=== PATIENT | male | born 1985 | race Caucasian/White ===

== ENCOUNTER 2018-02-11 09:59 | Inpatient (IN) | payer OTHER ==
[2018-02-11] VITALS (12 sets, daily range): BP systolic 118–143; BP diastolic 62–82
[~2018-02-11] VITALS: Ht 172.7 cm; Wt 84.8 kg
[~2018-02-11 09:59] MED LIST: Dexamethasone 4mg/ml vial ONE; Glycopyrrolate 0.2mg/ml 1ml Vial ONE; Ketorolac 30mg Inj ONE; LR 1000ml ONE; Midazolam 2mg/2ml Inj ONE; Morphine Sulfate 10mg/ml Inj ONE; NORCO 10-325 T1 EACH ORAL; NS Irrig 1000ml ONE; Neostigmine 1mg/ml 10ml Inj ONE; Propofol 200mg/20ml IV ONE; SOMA350 MG PO; Sterile Water For Irrig 2000ml IRRIG ONE; Sterile Water Irrig 1000ml IRRIG ONE; Zemuron 50mg/5ml Inj IV ONE; ceFAZolin sod 2 GM in D5W 110 ML IVPB ONE; fentaNYL 100 mcg/2 mL IV ONE
--- NOTE | 2018-02-11 10:30 | Pre-Procedure Note/Attestation ---
Pre-Procedure Note/Attestation Complete Prior to Procedure Planned Procedure: not applicable Procedure Narrative: Cervical 56 Artificial disc replacement Indications for Procedure Pre-Operative Diagnosis: c56 herniation Attestation I attest that I discussed the nature of the procedure; its benefits; risks and complications; and alternatives (and the risks and benefits of such alternatives ), prior to the procedure, with the patient (or the patient's legal mechanical service representative). I attest that, if there was a reasonable possibility of needing a blood transfusion, the patient (or the patient's legal mechanical service representative) was given the [facility] standardized written summary, pursuant to the [place] Blood Safety Act ([place] Health and Safety Code # 1645, as amended). I attest that I re-evaluated the patient just prior to the surgery and that there has been no change in the patient's H&P, except as documented below: Bill Dias MD Feb 11, 2018 10:30
--- NOTE | 2018-02-11 10:32 | Brief Operative Note ---
Immediate Post Operative Note Operative Note Chief Complaint: neck pain and radiculopathy Pre-op Diagnosis: c56 herniation Procedure: Cervical 56 Artificial disc replacement Post-op Diagnosis: same as pre-op Findings: consistent w/pre-op dx studies Surgeon: Arun [employer]: Sunny Anesthesiologist: JONI Anesthesia: general - Prodisc C sz 5 Specimen: none Complications: none Condition: stable Estimated Blood Loss: minimal Drains: none Implant(s) used?: Yes Bill Dias MD Feb 11, 2018 10:32
[2018-02-11] MEDS ORDERED: Thrombin 5000 units TOPIC ONE (11:24)
[2018-02-11] MEDS ORDERED: Bupivacaine 0.5% Inj 30 ml vial INJ ONE (11:24)
[2018-02-11] MEDS ORDERED: Bacitracin 50000 Units Vial ONE (11:25)
[2018-02-11] MEDS ORDERED: Surgicel 4in x 8in TOPIC ONE (11:25)
[2018-02-11] MEDS ORDERED: Vancomycin 1gm inj IVPB ONE ×2 (11:25→13:47)
[2018-02-11] MEDS ORDERED: Thrombin 5000 units spray kit TOPIC ONE (13:28)
--- NOTE | 2018-02-11 13:54 | Anethesia Preoperative Eval ---
Anesthesia Pre-op PMH/ROS General Date of Evaluation: Feb 11, 2018 Time of Evaluation: 12:35 Anesthesiologist: Ashly ASA Score: ASA 2 Mallampati Score Class I : Soft palate, uvula, fauces, pillars visible Class II: Soft palate, uvula, fauces visible Class III: Soft palate, base of uvula visible Class IV: Only hard plate visible Mallampati Classification: Class II Surgeon: Arun Diagnosis: Cervical radiculopathy Surgical Procedure: ACDF C5-C6 Anesthesia History: none Social History: current smoker Family History: no anesthesia problems Allergies: Coded Allergies: No Known Allergies (Unverified , 02/10/18) Medications: see eMAR Past Medical History Cardiovascular: Denies: HTN, CAD, GA, valve dz, arrhythmia, other Pulmonary: Denies: asthma, COPD, [place], other Gastrointestinal/Genitourinary: Reports: GERD; Denies: CRI, ESRD, other Neurologic/Psychiatric: Reports: other - chronic pain; Denies: dementia, CVA, depression/anxiety, TIA Endocrine: Denies: DM, hypothyroidism, steroids, other HEENT: Denies: cataract (L), cataract (R), glaucoma, [place] (L), [place] (R), other Hematology/Immune: Denies: anemia, DVT, bleeding disorder, other Musculoskeletal/Integumentary: Denies: OA, RA, DJD, DDD, edema, other PMH Narrative: as above PSxH Narrative: T&A Anesthesia Pre-op Phys. Exam Physician Exam Last Vital Signs Date Time Temp Pulse Resp B/P (MAP) Pulse Ox O2 Delivery O2 Flow Rate FiO2 02/11/18 10:40 98.5 58 20 143/82 98 Room Air 98.5 Constitutional: NAD Neurologic: CN 2-12 intact Cardiovascular: RRR, no M/R/G Respiratory: CTA Gastrointestinal: S/NT/ND Airway Exam Mallampati Score: Class II MO: full Neck: flexible ROM: limited Teeth: intact Dentures: no upper, no lower Anesthesia Pre-op A/P Labs See chart Studies Pre-op Studies: EKG - NSR, CXR - WNL Risk Assessment & Plan Assessment: ASA 2 Plan: GA with ETT neuromonitoring Status Change Before Surgery: No Pre-Antibiotics Drug: Ancef 2 gr. Given Within 1 Hr of Incision: Yes Time Given: 13:15 MILAGROS GARZA M.D. Feb 11, 2018 13:54
[2018-02-11] MEDS ORDERED: LR 1000ml 1,000 ML IVLG SCH (13:55)
[2018-02-11] MEDS ORDERED: Ketorolac 30mg Inj IV PRN (14:00)
[2018-02-11] MEDS ORDERED: Midazolam 2mg/2ml Inj IVP PRN (14:00)
[2018-02-11] MEDS ORDERED: Meperidine 50mg/ml Inj(FOR RIGORS ONLY) IV PRN (14:00)
[2018-02-11] MEDS ORDERED: DiphenhydrAMINE 50mg/ml Inj IVP PRN (14:00)
[2018-02-11] MEDS ORDERED: Gelfoam Absorbable 1gm powder pkt TOPIC ONE (14:10)
--- NOTE | 2018-02-11 15:16 | Immediate Post-Op Evaluation ---
Immediate Post-Op Evalulation Immediate Post-Op Evalulation Procedure: ACDF C5-C6 Date of Evaluation: Feb 11, 2018 Time of Evaluation: 15:14 IV Fluids: 1100 Blood Products: none Estimated Blood Loss: <50 Urinary Output: none Blood Pressure Systolic: 136 Blood Pressure Diastolic: 72 Pulse Rate: 84 Respiratory Rate: 22 O2 Sat by Pulse Oximetry: 99 Temperature (Fahrenheit): 98.6 Pain Score (1-10): 1 Nausea: No Vomiting: No Complications NONE Patient Status: reacts, patent, extubated, none MILAGROS GARZA M.D. Feb 11, 2018 15:16
[2018-02-11] MEDS: Hydromorphone 0.5mg/0.5ml inj IVP PRN ×2 (15:38→15:49)
[2018-02-11] MEDS ORDERED: HYDROcodone/Acetamin 7.5/325 tab ORAL PRN ×2 (17:00)
[2018-02-11] MEDS ORDERED: Norco 5mg/325mg tab ORAL PRN (17:00)
[2018-02-11] MEDS ORDERED: Milk of Magnesia 30ml Ud ORAL PRN (17:00)
[2018-02-11] MEDS ORDERED: Morphine Sulfate 4mg/ml Inj SUBQ PRN ×2 (17:00)
[2018-02-11] MEDS ORDERED: Naloxone 0.4mg/ml Inj IVP PRN (17:00)
[2018-02-11] MEDS: NS w/KCl 20mEq 1,000 ML IV SCH (17:45)
[2018-02-11] MEDS: Dexamethasone 4mg/ml vial IVP SCH ×2 (17:47→23:28)
[2018-02-11] MEDS: Docusate 100mg cap ORAL SCH (17:47)
[2018-02-11] MEDS ORDERED: Chloraseptic Spray 20mL Bottle ORAL PRN (18:00)
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
--- NOTE | 2018-02-11 18:15 | Diagnostic Imaging Report ---
Indication: Pain, intraoperative imaging Technique: Intraoperative images Comparison: none Findings: Intraoperative images demonstrate a localizer tool projected at the C5-6 level. Subsequent images document placement of a disc prosthesis at C5-6, appearing well aligned Impression: Intraoperative imaging, as described
[2018-02-11] MEDS: ceFAZolin sod 1 GM in D5W 110 ML IV SCH (20:27)
[2018-02-11] MEDS: Morphine Sulfate 4mg/ml Inj SUBQ PRN (20:31)
[2018-02-12] VITALS: BP 100/61
[2018-02-12] MEDS: NS w/KCl 20mEq 1,000 ML IV SCH ×2 (03:30→13:30)
[2018-02-12 04:00] VITALS: BP 112/69
[2018-02-12] MEDS: Dexamethasone 4mg/ml vial IVP SCH ×2 (05:16→12:25)
[2018-02-12] MEDS: ceFAZolin sod 1 GM in D5W 110 ML IV SCH ×2 (05:17→12:25)
[2018-02-12] MEDS: Morphine Sulfate 4mg/ml Inj SUBQ PRN (05:27)
[2018-02-12 08:00] VITALS: BP 126/61
[2018-02-12] MEDS: Docusate 100mg cap ORAL SCH (09:13)
--- NOTE | 2018-02-12 09:33 | General Progress Note ---
Assessment/Plan Assessment/Plan neck pain and radiculopathy c56 herniation Cervical 56 Artificial disc replacement PLAN 1. incentive spirometry 2. ambulates 3. PT evaluation and therapy 4. Hydration 5. Pain management 6. discharge once stable with outpatient follow up Subjective Allergies: Coded Allergies: No Known Allergies (Unverified , 02/10/18) Subjective care noted d/w patient Objective Last 24 Hour Vital Signs Date Time Temp Pulse Resp B/P (MAP) Pulse Ox O2 Delivery O2 Flow Rate FiO2 02/12/18 09:16 97.5 02/12/18 08:00 97.5 77 18 126/61 96 Room Air 97.5 02/12/18 04:00 97.4 65 18 112/69 97 Room Air 97.4 02/12/18 00:00 97.4 72 18 100/61 95 Room Air 97.4 02/11/18 20:00 97.6 55 18 127/73 97 Room Air 97.6 02/11/18 18:53 97 Nasal Cannula 2.0 02/11/18 18:16 98.0 72 20 123/79 97 98.0 02/11/18 16:19 99.0 02/11/18 16:15 97.7 70 20 121/81 97 Nasal Cannula 2.0 97.7 02/11/18 16:10 99.0 73 19 129/74 99 Nasal Cannula 2.0 99.0 02/11/18 16:08 99.0 02/11/18 16:00 99.0 72 20 131/73 99 Nasal Cannula 2.0 99.0 02/11/18 15:49 98.6 02/11/18 15:45 73 19 130/69 99 Nasal Cannula 2.0 02/11/18 15:42 98.6 02/11/18 15:38 98.6 02/11/18 15:34 68 20 126/68 99 Nasal Cannula 2.0 02/11/18 15:24 75 20 121/62 98 Room Air 02/11/18 15:16 209.5 84 22 99 02/11/18 15:14 77 19 121/62 100 Simple Mask 6.0 02/11/18 15:09 76 19 120/62 100 Simple Mask 6.0 02/11/18 15:04 99.2 75 18 118/62 100 Simple Mask 6.0 99.2 02/11/18 10:40 98.5 58 20 143/82 98 Room Air 98.5 Intake and Output 02/11/18 02/12/18 19:00 07:00 Intake Total 1550 ml 990 ml Output Total 49 ml 325 ml Balance 1501 ml 665 ml Intake Oral 300 ml 240 ml IV Total 1250 ml 750 ml Output Urine Total 325 ml Estimated Blood Loss 49 ml # Voids 2 Height (Feet): 5 Height (Inches): 8.00 Weight (Pounds): 187 Objective WDWN NAD clear breath sounds bilaterally without rhonchi or wheeze [id number] without MRG NABS nontender no HSM no CCE nonfocal DILAN WILLIAM Feb 12, 2018 09:33
--- NOTE | 2018-02-12 10:03 | 48 Hour Post Anesthesia Eval ---
Post Anesthesia Evaluation Procedure: ACDF C5-C6 Date of Evaluation: Feb 12, 2018 Time of Evaluation: 09:42 Blood Pressure Systolic: 126 0: 75 Pulse Rate: 76 Respiratory Rate: 20 Temperature (Fahrenheit): 97.8 O2 Sat by Pulse Oximetry: 98 Airway: patent Nausea: No Vomiting: No Pain Intensity: 2 Hydration Status: adequate Cardiopulmonary Status: stable Mental Status/LOC: patient returned to baseline Follow-up Care/Observations: n/a Post-Anesthesia Complications: none Follow-up care needed: ready to discharge MILAGROS GARZA M.D. Feb 12, 2018 10:03
[2018-02-12] MEDS ORDERED: CEPHALEXIN500 MG ORAL (10:47)
--- NOTE | 2018-02-12 11:00 | Discharge Summary ---
DATE OF ADMISSION: 02/11/2018 DATE OF DISCHARGE: 02/12/2018 PROCEDURE PERFORMED DURING ADMISSION: C5-C6 artificial disk replacement. REASON FOR ADMISSION: Herniated nucleus pulposus, C5-C6. HOSPITAL COURSE/TREATMENT RENDERED: DISCHARGE PHYSICAL EXAMINATION: 1. The patient was ambulating with and without the assistance of physical therapy. 2. Prior to discharge home, incision was clean and dry with minimal swelling. 3. Follows commands. 4. Alert and oriented. 5. Chan discontinued, voiding. 6. Incentive spirometer at bedside. 7. IVF hep-locked. MOTOR: Demonstrates expected postoperative bulk and tone. Moves biceps, triceps, and deltoid musculature on command. Moves hip flexors, quadriceps, tibialis anterior, EHL, gastrocsoleus musculature on command as well. TREATMENT RENDERED: 1. Daily nursing care. 2. Physical therapy. 3. Occupational therapy. 4. Intravenous medications. 5. Oral medications. 6. Daily postoperative examinations by Spine Surgery team. CONDITION OF PATIENT ON DISCHARGE: The condition on discharge is stable for discharge to home. DISCHARGE INSTRUCTIONS: Our specific instructions relating to physical activity, medications, diet, and follow-up care are detailed in our standard operative folder and were given to this patient prior to surgery. We will however summarize these briefly as stated below. Regarding physical activity, we would like the patient to limit their flexion, extension, and rotation. We also require a limitation on their bending, lifting, and twisting. All medication has been called in prior to surgery to their pharmacy of choice. They can resume their regular diet once tolerated. We would like them to shower and limit soaking the wound in a tub/Jacuzzi/the ocean for a period of one month or until the incision is completely healed. We will have them follow up in our office in three weeks' time for their regularly scheduled appointment. They understand to call our office tomorrow to schedule the time for their three-week followup appointment. The patient will notify us should they experience any increase in the severity of pain, redness/swelling/drainage from their incision. Bill Dias M.D. DR: Eva :22 JOB#: [id number] CC:
[2018-02-12 12:00] VITALS: BP 120/64
[2018-02-12] MEDS ORDERED: Tubing IV Secondary IV ONE (13:29)
== END 2018-02-12 13:30 | disposition home or self-care (01) | DRG 518 ==
LOC: SDSOVERFLO 09:59 → EEVIPCON 13:00 → 3E 16:25
PROC: 0RR30JZ Replacement of Cervical Vertebral Disc with Synthetic Substitute, Open Approach (ICD-10-PCS; principal; 2018-02-11 13:00)
DX: M50.122 Cervical disc disorder at C5-C6 level with radiculopathy (principal); M48.02 Spinal stenosis, cervical region; V43.52XS Car driver injured in collision with other type car in traffic accident, sequela; F17.200 Nicotine dependence, unspecified, uncomplicated
CPT/HCPCS: 36415; 72040; 76001; 86850; 86900; 86901; 87081; 94003; 94150; J2250; J2405; J2710